=== PATIENT | male | born 1970 | race Two or more races ===

== ENCOUNTER 2018-11-11 22:00 | Emergency (ER) | payer BC, MEDICAID ==
[~2018-11-11] VITALS: Ht 182.9 cm; Wt 104.3 kg
[2018-11-11 22:17] VITALS: BP 120/69
--- NOTE | 2018-11-11 22:36 | NUR ---
patient seen in bed 3. patient urdu speaking son at the bedside and tranlating for father. patient c/o 8/10 pain to right ear. patient has normal demeanor and is in no apparent distress. upon inspection of right ear canal no foreign object can be seen. patient reports that couple of days ago that a qtip broke and left the cotton in the ear canal. vss. AWAITING EVALUATION BY ER PROVIDER.
--- NOTE | 2018-11-11 22:40 | NUR ---
in to see patient.
--- NOTE | 2018-11-11 23:02 | NUR ---
Patient discharged to home in stable condition. Written and verbal after care instructions given. Patient verbalizes understanding of instruction. reviewed with patient and son that if ear pain gets worse over next few days to f/u with pcp. verbalized understanding.
== END 2018-11-11 23:05 | disposition home or self-care (01) ==
LOC: ER 22:03
DX: H92.01 Otalgia, right ear (principal)